=== PATIENT | female | born 1965 | race Hispanic/Latino ===

== ENCOUNTER 2019-07-19 14:41 | Emergency (ER) | payer OTHER ==
[2019-07-19 15:57] LABS: Absolute Lymphocytes (CBC) 2.6 K/uL (0.7-4.9); Basophils % 0.5 % (0-1.3); Hematocrit 35.7 % (36.0-45.0); Lymphocytes % 36.9 % (15.3-44.8); MPV 8.8 fL (7.6-11.3)
[2019-07-19 16:08] LABS: Protime INR 0.98
[2019-07-19 16:18] LABS: ALT/SGPT 33 U/L (12-78); AST/SGOT 16 U/L (15-37); Albumin 3.3 g/dL (3.4-5.0); Alkaline Phosphatase 81 U/L (45-117); BUN Blood Urea Nitrogen 14 mg/dL (7-18); Bicarbonate 29 mmol/L (21-32); Bilirubin Direct < 0.1 mg/dL (0-0.2); Bilirubin Total 0.3 mg/dL (0.2-1.0); Glucose Level 116 mg/dL (74-106); Lipase 128 U/L (73-393); Magnesium 2.4 mg/dL (1.8-2.4); NT PRO-BNP 116 pg/mL (<125); Potassium 3.2 mmol/L (3.5-5.1); Sodium Level 144 mmol/L (136-145); Troponin (Emerg Dept Use Only) < 0.02 ng/mL (0.0-0.045)
--- NOTE | 2019-07-19 16:22 | RAD REPORT ---
EXAM DESCRIPTION: RAD - Chest Single View - 07/19/2019 3:52 pm CLINICAL HISTORY: Chest pain, upper abdominal pain COMPARISON: March 2016 TECHNIQUE: AP portable chest image was obtained 1548 hours . FINDINGS: Lung volumes are low compared to prior study. No focal mass or consolidation. Slight incre ase in interstitial opacification overall could be due to the shallow inspiration. Heart and vasculat ure are normal. No measurable pleural effusion and no pneumothorax. No acute bony abnormality seen. N o acute aortic findings suspected. IMPRESSION: Shallow inspiration portable chest without acute cardiopulmonary finding.
--- NOTE | 2019-07-19 17:19 | RAD REPORT ---
EXAM DESCRIPTION: CT - Abdomen Pelvis W Contrast - 07/19/2019 4:44 pm CLINICAL HISTORY: ABD PAIN COMPARISON: CT study November 2013 TECHNIQUE: Biphasic, helical CT imaging of the abdomen and pelvis was performed following 100 ml non -ionic IV contrast. No oral contrast given. All CT scans are performed using dose optimization technique as appropriate and may include automated exposure control or mA/KV adjustment according to patient size. FINDINGS: No suspicious findings in the lung bases. Fatty infiltration seen in a normal size liver. No focal liver lesion. Spleen and pancreas show no hughes spicious findings. Cholecystectomy clips are present with no biliary tree dilatation. Symmetric renal function is seen with no hydronephrosis or suspicious renal mass. No pyelonephritis o r acute parenchymal process. No bladder abnormalities. No adrenal abnormalities. No dilated bowel loops or bowel wall thickening. No free air, free fluid or inflammatory stranding. No hernia, mass or bulky lymphadenopathy. Uterus and ovaries show no suspicious findings. No suspicious bony findings. L4-5 facet joint degenerative changes are present. IMPRESSION: Contrast enhanced CT abdomen and pelvis showing no acute findings. Fatty infiltration of the liver.
--- NOTE | 2019-07-19 17:31 | ER ---
Nurse's Notes [facility] Name: Sonia Sorenson Age: 53 yrs Sex: Female : 1965 Arrival Date: 07/19/2019 Time: 14:43 Bed 26 Private MD: Bebeto Fournier V Diagnosis: Generalized abdominal pain Presentation: 07/19 14:49 Presenting complaint: Patient states: RUQ pain radiating to back that began 2 days ago. aa5 Pt also states "my ankles are more swollen than usual". Transition of care: patient was not received from another setting of care. Onset of symptoms was July 2019. Risk Assessment: Do you want to hurt yourself or someone else? Patient reports no desire to harm self or others. Initial Sepsis Screen: Does the patient meet any 2 criteria? No. Patient's initial sepsis screen is negative. Does the patient have a suspected source of infection? No. Patient's initial sepsis screen is negative. Care prior to arrival: None. 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 - Social history:: Smoking status: Patient/guardian denies using tobacco. - Ebola Screening: : No symptoms or risks identified at this time. Screenin:17 Abuse screen: Denies threats or abuse. Nutritional screening: No deficits noted. tr5 Tuberculosis screening: No symptoms or risk factors identified. Fall Risk None identified. Assessment: 15:17 General: Appears uncomfortable, Behavior is calm, cooperative, appropriate for age. tr5 Pain: Complains of pain in right upper quadrant Pain does not radiate. Pain currently is 4 out of 10 on a pain scale. Quality of pain is described as sharp, Pain began gradually, Is intermittent. Neuro: Level of Consciousness is awake, alert, obeys commands, Oriented to person, place, time, Second Butler are equal bilaterally Moves all extremities. Cardiovascular: Heart tones present Capillary refill < 3 seconds Pulses are all present. Edema is 3+ to left foot and right foot. Cardiovascular: Reports nausea. Respiratory: Airway is patent Respiratory effort is even, unlabored, Respiratory pattern is regular, symmetrical. GI: Bowel sounds present X 4 quads. Abd is soft Abdomen is tender to palpation in right upper quadrant. : Reports darker color urine. EENT: No signs and/or symptoms were reported regarding the EENT system. Derm: No signs and/or symptoms reported regarding the dermatologic system. Musculoskeletal: Capillary refill < 3 seconds. 16:30 Reassessment: Patient appears in no apparent distress at this time. Patient and/or tr5 family updated on plan of care and expected duration. Pain level reassessed. Patient is alert, oriented x 3, equal unlabored respirations, skin warm/dry/pink. 17:30 Reassessment: Patient appears in no apparent distress at this time. No changes from tr5 previously documented assessment. Patient and/or family updated on plan of care and expected duration. Pain level reassessed. Patient is alert, oriented x 3, equal unlabored respirations, skin warm/dry/pink. Vital Signs: 14:51 BP 161 / 89; Pulse 88; Resp 16 S; Temp 97.6(TE); Pulse Ox 98% on R/A; Weight 83.46 kg aa5 (R); Height 5 ft. 6 in. (167.64 cm) (R); Pain 7/10; 15:52 BP 127 / 73; Pulse 75; Resp 18; Pulse Ox 97% ; lt1 17:17 BP 146 / 86; Pulse 80; Resp 16; Temp 98.8; Pulse Ox 99% ; lt1 14:51 Body Mass Index 29.70 (83.46 kg, 167.64 cm) aa5 ED Course: 14:43 Patient arrived in ED. ag5 14:44 Bebteo Fournier MD is Private Physician. ag5 14:49 Arm band placed on. aa5 14:50 Triage completed. aa5 15:02 Tim Maza, BRET is Primary Nurse. tr5 15:05 Malka Seymour FNP is PHCP. nh 15:05 Irwin Kelly MD is Attending Physician. nh 15:17 Placed in gown. Bed in low position. Call light in reach. Pulse ox on. NIBP on. tr5 15:38 Initial lab(s) drawn, by me, sent to lab. Inserted saline lock: 22 gauge in right lt1 antecubital area, using aseptic technique. 15:48 Radiology exam delayed due to lab results not completed at this time. (BUN/Creatinine). kw1 15:51 EKG done, by ED staff. lt1 15:53 XRAY Chest (1 view) In Process Unspecified. EDMS 16:[address] tr5 16:42 CT completed. Patient tolerated procedure well. Patient moved back from CT. bq 16:45 CT Abd/Pelvis - IV Contrast Only In Process Unspecified. EDMS 17:50 No provider procedures requiring assistance completed. IV discontinued. tr5 Administered Medications: 17:46 Drug: Potassium Chloride 20 mEq Route: PO; tr5 17:49 Follow up: Response: Medication administered at discharge. tr5 Output: 16:28 Urine: 230ml; Total: 230ml. ca1 Outcome: 17:30 Discharge ordered by MD. mo 17:50 Discharged to home ambulatory. tr5 17:50 Condition: stable 17:50 Discharge instructions given to patient, Instructed on discharge instructions, follow up and referral plans. medication usage, Demonstrated understanding of instructions, follow-up care, medications. 17:51 Patient left the ED. tr5 Signatures: Dispatcher [employer] EDMS Malka Seymour, REGISTRAR ASSISTANT REGISTRAR ASSISTANT mo Luisana Day Audri, RN RN aa5 Jazzmine Lea kw1 Laury Rosas RN RN ca1 Alex Adan Latonya Fairbanks lt1 Tim Maza RN RN tr5
--- NOTE | 2019-07-19 17:31 | EDPHYS ---
Physician Documentation [facility] Name: Sonia Sorenson Age: 53 yrs Sex: Female : 1965 Arrival Date: 07/19/2019 Time: 14:43 Bed 26 Private MD: Bebeto Fournier V ED Physician Irwin Kelly HPI: 07/19 17:25 This 53 yrs old Female presents to ER via Ambulatory with complaints of nh Abdominal Pain, Ankle Swelling, Feet Swelling. 17:25 The patient presents with abdominal pain in the right upper quadrant, right lower nh quadrant. Onset: The symptoms/episode began/occurred 3 day(s) ago. The symptoms do not radiate. Associated signs and symptoms: none. The symptoms are described as constant. Modifying factors: The symptoms are alleviated by nothing, the symptoms are aggravated by nothing. Severity of pain: At its worst the pain was moderate just prior to arrival, in the emergency department the pain has improved. The patient has not experienced similar symptoms in the past. Seen by GI and had colonoscopy last week.. 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 - Social history:: Smoking status: Patient/guardian denies using tobacco. - Ebola Screening: : No symptoms or risks identified at this time. ROS: 17:25 Constitutional: Negative for fever, chills, and weight loss, Eyes: Negative for injury, nh pain, redness, and discharge, ENT: Negative for injury, pain, and discharge, Neck: Negative for injury, pain, and swelling, Cardiovascular: Negative for chest pain, palpitations, and edema, Respiratory: Negative for shortness of breath, cough, wheezing, and pleuritic chest pain, Back: Negative for injury and pain, : Negative for injury, bleeding, discharge, and swelling, Skin: Negative for injury, rash, and discoloration, Neuro: Negative for headache, weakness, numbness, tingling, and seizure, Psych: Negative for depression, anxiety, suicide ideation, homicidal ideation, and hallucinations, Allergy/Immunology: Negative for hives, rash, and allergies, Endocrine: Negative for neck swelling, polydipsia, polyuria, polyphagia, and marked weight changes, Hematologic/Lymphatic: Negative for swollen nodes, abnormal bleeding, and unusual bruising. 17:25 Abdomen/GI: Positive for abdominal pain, Negative for nausea, vomiting, and diarrhea. 17:25 MS/extremity: Positive for swelling, warmth, of the right foot and left foot, Negative for pain, tenderness, tingling. Exam: 17:25 Constitutional: This is a well developed, well nourished patient who is awake, alert, nh and in no acute distress. Head/Face: Normocephalic, atraumatic. Eyes: Pupils equal round and reactive to light, extra-ocular motions intact. Lids and lashes normal. Conjunctiva and sclera are non-icteric and not injected. Cornea within normal limits. Periorbital areas with no swelling, redness, or edema. ENT: Nares patent. No nasal discharge, no septal abnormalities noted. Tympanic membranes are normal and external auditory canals are clear. Oropharynx with no redness, swelling, or masses, exudates, or evidence of obstruction, uvula midline. Mucous membranes moist. Neck: Trachea midline, no thyromegaly or masses palpated, and no cervical lymphadenopathy. Supple, full range of motion without nuchal rigidity, or vertebral point tenderness. No Meningismus. Chest/axilla: Normal chest wall appearance and motion. Nontender with no deformity. No lesions are appreciated. Cardiovascular: Regular rate and rhythm with a normal S1 and S2. No gallops, murmurs, or rubs. Normal PMI, no JVD. No pulse deficits. Respiratory: Lungs have equal breath sounds bilaterally, clear to auscultation and percussion. No rales, rhonchi or wheezes noted. No increased work of breathing, no retractions or nasal flaring. Back: No spinal tenderness. No costovertebral tenderness. Full range of motion. Skin: Warm, dry with normal turgor. Normal color with no rashes, no lesions, and no evidence of cellulitis. MS/ Extremity: Pulses equal, no cyanosis. Neurovascular intact. Full, normal range of motion. Neuro: Awake and alert, GCS 15, oriented to person, place, time, and situation. Cranial nerves II-XII grossly intact. Motor strength 5/5 in all extremities. Sensory grossly intact. Cerebellar exam normal. Normal gait. Psych: Awake, alert, with orientation to person, place and time. Behavior, mood, and affect are within normal limits. 17:25 Abdomen/GI: Inspection: abdomen appears normal, Bowel sounds: normal, Palpation: abdomen is soft and non-tender. Vital Signs: 14:51 BP 161 / 89; Pulse 88; Resp 16 S; Temp 97.6(TE); Pulse Ox 98% on R/A; Weight 83.46 kg aa5 (R); Height 5 ft. 6 in. (167.64 cm) (R); Pain 7/10; 15:52 BP 127 / 73; Pulse 75; Resp 18; Pulse Ox 97% ; lt1 17:17 BP 146 / 86; Pulse 80; Resp 16; Temp 98.8; Pulse Ox 99% ; lt1 14:51 Body Mass Index 29.70 (83.46 kg, 167.64 cm) aa5 MDM: 15:05 Patient medically screened. sd 17:25 Data reviewed: vital signs, nurses notes, lab test result(s), radiologic studies, I nh have discussed the patient's presentation/case with the attending Emergency Department Physician; and as a result, I will discharge patient. Counseling: I had a detailed discussion with the patient and/or guardian regarding: the historical points, exam findings, and any diagnostic results supporting the discharge/admit diagnosis, lab results, radiology results, the need for outpatient follow up, to return to the emergency department if symptoms worsen or persist or if there are any questions or concerns that arise at home. 07/19 15:23 Order name: Basic Metabolic Panel; Complete Time: 16:38 sd 07/19 15:23 Order name: CBC with Diff; Complete Time: 16:38 sd 07/19 15:23 Order name: Creatinine for Radiology; Complete Time: 16:38 sd 07/19 15:23 Order name: Hepatic Function; Complete Time: 16:38 sd 07/19 15:23 Order name: Lipase; Complete Time: 16:38 sd 07/19 15:23 Order name: Magnesium; Complete Time: 16:38 sd 07/19 15:23 Order name: IV Saline Lock; Complete Time: 15:38 sd 07/19 15:23 Order name: NT PRO-BNP; Complete Time: 16:38 sd 07/19 15:23 Order name: PT-INR; Complete Time: 16:38 sd 07/19 15:23 Order name: Troponin (emerg Dept Use Only); Complete Time: 16:38 sd 07/19 15:23 Order name: XRAY Chest (1 view); Complete Time: 16:38 sd 07/19 15:23 Order name: EKG; Complete Time: 15:25 sd 07/19 15:23 Order name: CT Abd/Pelvis - IV Contrast Only; Complete Time: 17:23 sd 07/19 15:23 Order name: Labs collected and sent; Complete Time: 15:38 sd 07/19 15:23 Order name: Cardiac monitoring; Complete Time: 15:52 sd 07/19 15:23 Order name: EKG - Nurse/Tech; Complete Time: 15:52 sd 07/19 15:23 Order name: O2 Per Protocol; Complete Time: 15:38 sd 07/19 15:23 Order name: O2 Sat Monitoring; Complete Time: 15:38 sd Administered Medications: 17:46 Drug: Potassium Chloride 20 mEq Route: PO; tr5 17:49 Follow up: Response: Medication administered at discharge. tr5 Disposition: 17:59 Co-signature as Attending Physician, Irwin Kelly MD. rn Disposition: 07/19/19 17:30 Discharged to Home. Impression: Generalized abdominal pain. - Condition is Stable. - Discharge Instructions: Abdominal Pain, Adult. - Prescriptions for Bentyl 20 mg Oral Tablet - take 1 tablet by ORAL route every 6 hours As needed; 20 tablet. - Medication Reconciliation Form, Thank You Letter, Antibiotic Education, Prescription Opioid Use form. - Follow up: Private Physician; When: 2 - 3 days; Reason: Recheck today's complaints. - Problem is new. - Symptoms are unchanged. Signatures: Dispatcher [employer] EDMS Malka Seymour, BATTERBOARD SETTER BATTERBOARD SETTER sd Irwin Kelly MD MD rn Calderon, Audri, RN RN [email or web address] Tim Maza RN RN tr5 Corrections: (The following items were deleted from the chart) 17:51 17:30 07/19/2019 17:30 Discharged to Home. Impression: Generalized abdominal pain. tr5 Condition is Stable. Forms are Medication Reconciliation Form, Thank You Letter, Antibiotic Education, Prescription Opioid Use. Follow up: Private Physician; When: 2 - 3 days; Reason: Recheck today's complaints. Problem is new. Symptoms are unchanged. nh
[2019-07-19] MEDS ORDERED: POTASSIUM CL SA 10 MEQ TAB PO ONE (17:36)
[2019-07-19 20:34] VITALS: BP 146/86; TEMP 98.8; O2SAT 99
--- NOTE | 2019-07-20 09:33 | EKG ---
Test Date: 2019-07-19 Test Time: 15:45:40 Card Seller: CATIE MEASUREMENT RESULTS: Intervals: Rate: 77 DE: 160 QRSD: 90 QT: 410 QTc: 463 [place]: P: 63 DE: 160 QRS: 56 T: 93 INTERPRETIVE STATEMENTS: Normal sinus rhythm Possible Anterior infarct, age undetermined Abnormal ECG Compared to ECG 02/05/2017 02:35:27 Myocardial infarct finding now present Sinus arrhythmia no longer present Electronically Signed On 07-20-19 09:32:23 CDT by Amado Manzano
== END 2019-07-19 17:51 | disposition home or self-care (01) ==
LOC: ER 14:41
DX: R10.84 Generalized abdominal pain (principal); I10 Essential (primary) hypertension; Z88.8 Allergy status to other drugs, medicaments and biological substances; Z91.048 Other nonmedicinal substance allergy status
CPT/HCPCS: 93005; 85025; 80048; 36415; 83735; 85610; 80076; 84484; 83690; 83880; 74177; 71045; 99284; Q9967

== ENCOUNTER 2022-11-06 22:11 | Emergency (ER) | payer OTHER, SELFPAY ==
[2022-11-06 23:22] LABS: Hematocrit 36.1 % (36.0-45.0); Lymphocytes % 42.7 % (15.3-44.8); MCV 85.9 fL (80-100); MPV 7.9 fL (7.6-11.3); RBC Red Blood Cell Count 4.21 M/uL (3.86-4.86)
[2022-11-06 23:26] LABS: Protime INR 0.95
[2022-11-06 23:47] LABS: Potassium 3.6 mmol/L (3.5-5.1); Troponin High Sensitivity 4.7 pg/mL (<58.9)
--- NOTE | 2022-11-07 01:07 | ER ---
Nurse's Notes [facility] Name: Sonia Sorenson Age: 57 yrs Sex: Female : 1965 Arrival Date: 11/06/2022 Time: 22:16 Bed 27 Private MD: Diagnosis: Paresthesia of skin Presentation: 11/06 22:23 Chief complaint: Patient states: "I am having tingling and numbness to the left side of as6 my face and down my left arm. I called my doctor and they said to take a baby aspirin". Coronavirus screen: At this time, the client does not indicate any symptoms associated with coronavirus-19. Ebola Screen: No symptoms or risks identified at this time. Initial Sepsis Screen: Does the patient meet any 2 criteria? No. Patient's initial sepsis screen is negative. Does the patient have a suspected source of infection? No. Patient's initial sepsis screen is negative. Risk Assessment: Do you want to hurt yourself or someone else? Patient reports no desire to harm self or others. Onset of symptoms was November 06, 2022 at 16:50. 22:23 Method Of Arrival: Ambulatory as6 22:23 Acuity: CELESTINA 3 as6 Historical: - Home Meds: 22:27 Spironolactone Oral [Active]; atorvastatin oral [Active]; as6 - PMHx: 22:27 Hypertension; as6 - PSHx: 22:27 Cholecystectomy; section; as6 - Immunization history:: Client reports receiving the 2nd dose of the Covid vaccine, pfizer Flu vaccine is up to date. - Social history:: Smoking status: Patient denies any tobacco usage or history of. - Family history:: not pertinent. - Hospitalizations: : No recent hospitalization is reported. Screenin:40 Patient has been NPO before screening. The patient is alert, able to follow commands. ll3 The patient does not exhibit slurred or garbled speech The patient is not exhibiting difficulty speaking. The patient does not exhibit difficulty understanding words. The patient is able to swallow own secretions with no drooling or need for suction. Patient tolerated one teaspoon of water. No drooling, immediate coughing, gurgling, or clearing of the throat was noted. The patient tolerated 90mL of water. No drooling, immediate coughing, gurgling, or clearing of the throat was noted. The patient passed the bedside swallow screening. Oral medications may be given as ordered. Contact Physician for further diet orders. Provider notified of bedside swallow screening results: Irwin Kelly MD. 11/07 01:05 [facility] ED Fall Risk Assessment (Adult) History of falling in the last 3 months, ll3 including since admission No falls in past 3 months (0 pts) Confusion or Disorientation No (0 pts) Intoxicated or Sedated No (0 pts) Impaired Gait No (0 pts) Mobility Assist Device Used No (0 pt) Altered Elimination No (0 pt). Abuse screen: Denies threats or abuse. Denies injuries from another. Nutritional screening: No deficits noted. Tuberculosis screening: No symptoms or risk factors identified. Assessment: 11/06 22:33 General: Appears uncomfortable, Behavior is calm, cooperative. Pain: Complains of pain ll3 in left axilla Pain does not radiate. Neuro: Level of Consciousness is awake, alert, obeys commands, Oriented to person, place, time, situation, Reports numbness in left ear, left cheek, left eye, left mandaen and left jaw. Respiratory: Respiratory effort is even, unlabored, Respiratory pattern is regular, symmetrical. Derm: Skin is pink, warm \\T\\ dry. Vital Signs: 22:23 BP 148 / 94; Pulse 79; Resp 18; Temp 98.6(O); Pulse Ox 97% on R/A; Weight 87.54 kg (R); as6 Height 5 ft. 6 in. (167.64 cm) (R); Pain 0/10; 11/07 00:00 BP 155 / 97; Pulse 81; Resp 17; Pulse Ox 99% on R/A; ll3 01:19 BP 156 / 90; Pulse 75; Resp 18; Pulse Ox 99% on R/A; ll3 11/06 22:23 Body Mass Index 31.15 (87.54 kg, 167.64 cm) as6 ED Course: 11/06 22:16 Patient arrived in ED. jj6 22:18 Irwin Kelly MD is Attending Physician. rn 22:27 Triage completed. as6 22:29 Arm band placed on. as6 23:00 Patient has correct armband on for positive identification. Placed in gown. Bed in low ll3 position. Call light in reach. Side rails up X 1. 23:03 Inserted saline lock: 20 gauge in right antecubital area, using aseptic technique. zm Blood collected. 23:03 Basic Metabolic Panel Sent. zm 23:04 CBC with Diff Sent. zm 23:04 High Sensitivity Troponin Sent. zm 23:04 Protime (+inr) Sent. zm 23:04 Ptt, Activated Sent. zm 23:24 CT Head Brain wo Cont In Process Unspecified. EDMS 23:31 CT Head Angio In Process Unspecified. EDMS 23:[address] In Process Unspecified. EDMS 11/07 01:05 No provider procedures requiring assistance completed. ll3 01:07 Michael Stovall MD is Referral Physician. rn 01:18 IV discontinued, intact, bleeding controlled, No redness/swelling at site. Pressure ll3 dressing applied. Administered Medications: No medications were administered Medication: 01:05 VIS not applicable for this client. ll3 Outcome: 01:07 Discharge ordered by . rn 01:18 Discharged to home ambulatory, with significant other. ll3 01:18 Condition: stable 01:18 Discharge instructions given to patient, significant other, Instructed on discharge instructions, follow up and referral plans. medication usage, Demonstrated understanding of instructions, follow-up care, medications, Prescriptions given X 2. 01:19 Patient left the ED. ll3 Signatures: Dispatcher [employer] EDMD Irwin Kelly MD MD rn Jeffries, Jennifer jj6 Slawson, Ashby, RN RN as6 Jonh See RN RN ll3 Hodan Rahman
--- NOTE | 2022-11-07 01:08 | EDPHYS ---
Physician Documentation [facility] Name: Sonia Sorenson Age: 57 yrs Sex: Female : 1965 Arrival Date: 11/06/2022 Time: 22:16 Bed 27 Private MD: ED Physician Irwin Kelly HPI: 11/06 23:24 This 57 yrs old Female presents to ER via Ambulatory with complaints of rn tingling left face/arm, left arm pain. 23:25 The patient's problem is reported as paresthesias, in left side of face, left hand. rn Onset: The symptoms/episode began/occurred at 16:50. Duration: The episode is continuous. Context: symptoms became apparent at 16:50. The symptoms are alleviated by nothing. The symptoms are aggravated by nothing. Associated signs and symptoms: Pertinent positives: left arm pain. Severity of symptoms: At their worst the symptoms were mild in the emergency department the symptoms are unchanged. The patient has not experienced similar symptoms in the past. The patient has been recently seen by a physician:. Pt reports 4 days of left arm pain, and aching. No trauma. Today around 1650 noticed left face tingling and "feels cold". Also reports left hand feels "tingling". No weakness. Reports left upper arm in tricep region aching, as well as left neck. No fever. No chest pain. Seen by pcp for left arm pain and told likely muscular. Tingling new so came in for eval. . Historical: - Home Meds: 22:27 Spironolactone Oral [Active]; atorvastatin oral [Active]; as6 - PMHx: 22:27 Hypertension; as6 - PSHx: 22:27 Cholecystectomy; section; as6 - Immunization history:: Client reports receiving the 2nd dose of the Covid vaccine, pfizer Flu vaccine is up to date. - Social history:: Smoking status: Patient denies any tobacco usage or history of. - Family history:: not pertinent. - Hospitalizations: : No recent hospitalization is reported. ROS: 23:25 Constitutional: Negative for fever, chills, and weight loss, Eyes: Negative for injury, rn pain, redness, and discharge, Neck: Negative for injury, and swelling, Cardiovascular: Negative for chest pain, palpitations, and edema, Respiratory: Negative for shortness of breath, cough, wheezing, and pleuritic chest pain, Abdomen/GI: Negative for abdominal pain, nausea, vomiting, diarrhea, and constipation, Back: Negative for injury and pain, MS/Extremity: Negative for injury and deformity, Skin: Negative for injury, rash, and discoloration, Neuro: Negative for headache, weakness, and seizure. Exam: 23:25 Constitutional: This is a well developed, well nourished patient who is awake, alert, rn and in no acute distress. Head/Face: Normocephalic, atraumatic. Eyes: Lids and lashes normal. Conjunctiva and sclera are non-icteric and not injected. Cornea within normal limits. Periorbital areas with no swelling, redness, or edema. Neck: Trachea midline, no midline cervical tenderness Cardiovascular: Regular rate and rhythm . No pulse deficits. Respiratory: No increased work of breathing, no retractions or nasal flaring. Skin: Warm, dry with normal turgor. Normal color with no rashes, no lesions, and no evidence of cellulitis. MS/ Extremity: Pulses equal, no cyanosis. Neurovascular intact. Full, normal range of motion. Equal circumference. Neuro: Awake and alert, GCS 15, oriented to person, place, time, and situation. Cranial nerves II-XII grossly intact. Motor strength 5/5 in all extremities. Decreased sensation to soft touch left face and left hand, otherwise normal and equal sensation. Normal gait. 11/07 00:00 ECG was reviewed by the Attending Physician. rn Vital Signs: 11/06 22:23 BP 148 / 94; Pulse 79; Resp 18; Temp 98.6(O); Pulse Ox 97% on R/A; Weight 87.54 kg (R); as6 Height 5 ft. 6 in. (167.64 cm) (R); Pain 0/10; 11/07 00:00 BP 155 / 97; Pulse 81; Resp 17; Pulse Ox 99% on R/A; ll3 01:19 BP 156 / 90; Pulse 75; Resp 18; Pulse Ox 99% on R/A; ll3 11/06 22:23 Body Mass Index 31.15 (87.54 kg, 167.64 cm) as6 MDM: 11/06 22:18 Patient medically screened. rn 11/07 01:04 Differential diagnosis: CVA, TIA, metabolic disorder, radiculopathy, paresthesias, rn complicated migraine. Data reviewed: vital signs, nurses notes, lab test result(s), EKG, radiologic studies, CT scan, and as a result, I will discharge patient. Counseling: I had a detailed discussion with the patient and/or guardian regarding: the historical points, exam findings, and any diagnostic results supporting the discharge/admit diagnosis, lab results, radiology results, the need for outpatient follow up, to return to the emergency department if symptoms worsen or persist or if there are any questions or concerns that arise at home. Medical screen evaluation completed. [facility]. Response to treatment: the patient's symptoms have markedly improved after treatment, and as a result, I will discharge patient. ED course: CT head neg, CTA head and neck negative for occlusion. 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 Offered admission for MRI in AM to completely rule out CVA, patient declines, is happy with workup performed and feels much better. She started baby aspirin today, told her she can continue as long as no bleeding noted. Will f/u either way with Neurology. . 11/06 22:30 Order name: Basic Metabolic Panel; Complete Time: 23:54 11/06 22:30 Order name: CBC with Diff; Complete Time: 23:54 11/06 22:30 Order name: High Sensitivity Troponin; Complete Time: 23:54 11/06 22:30 Order name: Protime (+inr); Complete Time: 23:54 11/06 22:30 Order name: Ptt, Activated; Complete Time: 23:54 11/06 23:42 Order name: Glucose, Ancillary Testing; Complete Time: 23:54 EDMS 11/06 22:30 Order name: CT Head Brain wo Cont rn 11/06 22:30 Order name: EKG; Complete Time: 22:31 rn 11/06 22:30 Order name: Accucheck; Complete Time: 23:32 rn 11/06 22:30 Order name: Cardiac monitoring; Complete Time: 23:45 11/06 22:30 Order name: EKG - Nurse/Tech; Complete Time: 23:45 11/06 22:30 Order name: IV Saline Lock; Complete Time: 23:03 11/06 22:30 Order name: CT Head Angio rn 11/06 22:30 Order name: Neck Angio CT rn 11/06 22:30 Order name: Labs collected and sent; Complete Time: 23: rn 11/06 Order name: NPO; Complete Time: 23: rn 11/0630 Order name: O2 Per Protocol; Complete Time: 23:19 rn 11/06 22:30 Order name: O2 Sat Monitoring; Complete Time: 23: rn 11/06 22:30 Order name: Stroke Swallow Screen; Complete Time: 23:39 rn EC:00 Rate is 73 beats/min. Rhythm is regular. QRS [place] is Normal. [place] interval is normal. QRS rn interval is normal. QT interval is normal. No Q waves. T waves are Normal. No ST changes noted. Clinical impression: NSR w/ Non-specific ST/T Changes. Interpreted by me. Reviewed by me. Administered Medications: No medications were administered Disposition Summary: 11/07/22 01:07 Discharge Ordered Location: Home rn Problem: new rn Symptoms: have improved rn Condition: Stable rn Diagnosis - Paresthesia of skin rn Followup: rn - With: Michael Stovall MD - When: As needed - Reason: Recheck today's complaints, Re-evaluation by your physician Discharge Instructions: - Discharge Summary Sheet rn - Paresthesia rn Forms: - Medication Reconciliation Form rn - Thank You Letter rn - Antibiotic garment patternmaker - Prescription Opioid Use rn Prescriptions: - Cyclobenzaprine 10 mg Oral Tablet - take 1 tablet by ORAL route every 8-12 hours As needed; 12 tablet; Refills: 0, rn Product Selection Permitted - Medrol (Ariel) 4 mg Oral Tablets, Dose Pack - take 1 tablet by ORAL route as directed - follow package instructions; 1 rn packet; Refills: 0, Product Selection Permitted Signatures: Dispatcher [employer] Irwin Barreto MD MD rn Slawson, Ashby RN RN as6
[2022-11-07 01:55] VITALS: TEMP 98.6
[2022-11-07 02:00] VITALS: O2SAT 99
[2022-11-07 02:06] VITALS: BP 156/90
--- NOTE | 2022-11-07 11:44 | RAD REPORT ---
EXAM DESCRIPTION: CT Head Without Intravenous Contrast CLINICAL HISTORY: The patient is 57 years old and is Female; left sided numbness/tingling TECHNIQUE: Axial computed tomography images of the head/brain without intravenous contrast. Sagitt al and coronal reformatted images were created and reviewed. This CT exam was performed using one o r more of the following dose reduction techniques: automated exposure control, adjustment of the mA and/or kV according to patient size, and/or use of iterative reconstruction technique. COMPARISON: No relevant prior studies available. FINDINGS: Brain: Unremarkable. No hemorrhage. No significant white matter disease. No edema. Ventricles: Unremarkable. No ventriculomegaly. Bones/joints: Unremarkable. No acute fracture. Soft tissues: Unremarkable. Sinuses: Unremarkable as visualized. Mastoid air cells: Unremarkable as visualized. No mastoid effusion. IMPRESSION: No acute intracranial abnormality. Electronically signed by: Delano Mustafa MD 11/06/2022 11:38 PM INSULATION BLOWER Due to temporary technical issues with the PACS/Fluency reporting system, reports are being signed by the in house radiologists without review as a courtesy to insure prompt reporting. The interpreting radiologist is fully responsible for the content of the report.
--- NOTE | 2022-11-07 11:58 | RAD REPORT ---
EXAM DESCRIPTION: Head angio (accession [id number]), Neck Angio (accession [id number]) CLINICAL HISTORY: 57-year-old female with left-sided tingling. COMPARISON: CT brain 11/06/2022. TECHNIQUE: CT angiography of the head and neck following dynamic bolus of intravenous contrast. 3D r eformatted reconstructions were performed on an independent workstation. This exam was performed acco rding to our departmental dose optimization program which includes use of automated exposure control, adjustment of the mA and/or kV according to patient size and/or use of iterative reconstruction tech nique. FINDINGS: CTA neck: Small focus of linear hypoattenuation is identified within a bend the level of the mid right internal carotid artery measuring 1 mm, (404, image 75) raising the possibility of a vascular web. Patent flow opacification of the aortic arch origin right brachiocephalic, left common carotid, and l eft subclavian arteries. The bilateral vertebral artery origins are normal. Patent flow opacification through the bilateral common carotid arteries, carotid bifurcations, cervic al internal/external carotid, and vertebral arteries. CTA brain: Patent flow opacification through anterior circulation (bilateral petrous/cavernous/supraclinoid inte rnal carotid arteries, anterior and middle cerebral arteries), posterior circulation (vertebral-basil ar, posterior-inferior cerebellar, anterior-inferior cerebellar, superior cerebellar, and posterior c erebral arteries), and distal intracranial vasculature. Patent flow opacification through a complete [id number] with a patent anterior communicating ar paulino and bilateral posterior communicating arteries. Normal superficial and deep intracranial venous drainage. No evidence of occlusive thrombus, dissection, or vascular malformation. IMPRESSION: 1. Patent flow related enhancement of the intracranial circulation. 2. Patent flow related enhancement of the cervical vasculature without significant stenosis by NASC ET criteria. 3. Small focus of linear hypoattenuation is identified within a bend the level of the mid right int ernal carotid artery measuring 1 mm, raising the possibility of a vascular web. Electronically signed by: Jannette Parikh MD 11/07/2022 12:09 AM PATIENT SUPPORT REPRESENTATIVE Due to temporary technical issues with the PACS/Fluency reporting system, reports are being signed by the in house radiologists without review as a courtesy to insure prompt reporting. The interpreting radiologist is fully responsible for the content of the report.
--- NOTE | 2022-11-07 12:10 | RAD REPORT ---
EXAM DESCRIPTION: Head angio (accession [id number]), Neck Angio (accession [id number]) CLINICAL HISTORY: 57-year-old female with left-sided tingling. COMPARISON: CT brain 11/06/2022. TECHNIQUE: CT angiography of the head and neck following dynamic bolus of intravenous contrast. 3D r eformatted reconstructions were performed on an independent workstation. This exam was performed acco rding to our departmental dose optimization program which includes use of automated exposure control, adjustment of the mA and/or kV according to patient size and/or use of iterative reconstruction tech nique. FINDINGS: CTA neck: Small focus of linear hypoattenuation is identified within a bend the level of the mid right internal carotid artery measuring 1 mm, (404, image 75) raising the possibility of a vascular web. Patent flow opacification of the aortic arch origin right brachiocephalic, left common carotid, and l eft subclavian arteries. The bilateral vertebral artery origins are normal. Patent flow opacification through the bilateral common carotid arteries, carotid bifurcations, cervic al internal/external carotid, and vertebral arteries. CTA brain: Patent flow opacification through anterior circulation (bilateral petrous/cavernous/supraclinoid inte rnal carotid arteries, anterior and middle cerebral arteries), posterior circulation (vertebral-basil ar, posterior-inferior cerebellar, anterior-inferior cerebellar, superior cerebellar, and posterior c erebral arteries), and distal intracranial vasculature. Patent flow opacification through a complete [id number] with a patent anterior communicating ar paulino and bilateral posterior communicating arteries. Normal superficial and deep intracranial venous drainage. No evidence of occlusive thrombus, dissection, or vascular malformation. IMPRESSION: 1. Patent flow related enhancement of the intracranial circulation. 2. Patent flow related enhancement of the cervical vasculature without significant stenosis by NASC ET criteria. 3. Small focus of linear hypoattenuation is identified within a bend the level of the mid right int ernal carotid artery measuring 1 mm, raising the possibility of a vascular web. Electronically signed by: Jannette Parikh MD 11/07/2022 12:09 AM FOOD CHECKER Due to temporary technical issues with the PACS/Fluency reporting system, reports are being signed by the in house radiologists without review as a courtesy to insure prompt reporting. The interpreting radiologist is fully responsible for the content of the report.
--- NOTE | 2022-11-07 13:38 | EKG ---
Test Date: 2022-11-06 Test Time: 23:39:50 Donkey Engine Firer/Fireman: CURTIS MEASUREMENT RESULTS: Intervals: Rate: 73 MI: 174 QRSD: 90 QT: 412 QTc: 453 [place]: P: 64 MI: 174 QRS: -14 T: 69 INTERPRETIVE STATEMENTS: Normal sinus rhythm Anterior infarct, age undetermined Abnormal ECG Compared to ECG 07/19/2019 15:45:40 No significant changes Electronically Signed On 11-07-22 13:37:02 LEGAL SECRETARY RECEPTIONIST by Rodo Sweeney
== END 2022-11-07 01:19 | disposition home or self-care (01) ==
LOC: ER 22:11
DX: R20.2 Paresthesia of skin (principal); R20.0 Anesthesia of skin; I10 Essential (primary) hypertension
CPT/HCPCS: 36415; 70450; 70496; 70498; 80048; 82565; 82947; 84484; 85025; 85610; 85730; 93005; 99284

== ENCOUNTER 2025-03-17 18:42 | Emergency (ER) | payer OTHER ==
--- OUTSIDE RECORDS SUMMARY | 2025-03-17 18:45 | XMS REPORT | Continuity of Care Document ---
Author Name Unknown Address [address] [place] [address] [address] [place] [address] [facility] Address [address] [place] [address]. [address] [place] [address] Care Team Providers Care Help Desk Assistant Name Role Phone Vu Aamir CASTILLO Primary Care Physician [phone] GC_GCBZW_Kadiyala_S Attending Clinician Unavaila ble GC_GCBZW_Kadiyala_S Admitting Clinician Unavaila ble Medications Ordered Medication Name Filled Medication Name Start Date Stop Date Current Medication? Ordering Clinician Indication Dosage Frequency Signature (SIG) Comments Components Source diclofenac 1 % topical gel 2023-11 00:00: 00 Yes 1% Crispin Schmidt TAKE 1 TABLET DAILY. 07-07 00:00: 00 Yes 75 Crispin Schmidt TAKE 1 TABLET BY MOUTH ONCE DAILY 07-07 00:00: 00 Yes 40 Crispin Schmidt TAKE 1/2 TABLET DAILY. 07-07 00:00: 00 Yes 25 Crispin Schmidt TAKE 1 TABLET BY MOUTH ONCE DAILY 07-07 00:00: 00 Yes 50 Crispin Schmidt TAKE 1 TABLET BY MOUTH ONCE DAILY 07-07 00:00: 00 Yes 112 Crispin Schmidt TAKE 10 ML EVERY 4-6 HOURS NEEDED 07-07 00:00: 00 11-23 00:00 :00 No [id number] Crispin Schmidt 1 CAP EVERY 8 HOURS NEEDED FOR COUGH 07-07 00:00: 00 11-23 00:00 :00 No 200 Crispin Schmidt TAKE 2 CAPSULES BY MOUTH TWICE DAILY WITH FOOD 05-02 00:00: 00 Yes Crispin Schmidt TAKE 1 TABLET BY MOUTH THREE TIMES DAILY AFTER A MEAL 05-02 00:00: 00 Yes Crisipn Schmidt TAKE 1 TABLET BY MOUTH EVERY 12 HOURS WITH FOOD 05-02 00:00: 00 Yes Crispin Schmidt TAKE 1 CAPSULE BY MOUTH TWICE DAILY 05-02 00:00: 00 Yes Crispin Schmidt TAKE 1 TABLET BY MOUTH TWICE DAILY 05-01 00:00: 00 Yes Crispin Schmidt DISSOLVE 1 TABLET UNDER THE TONGUE EVERY 8 HOURS NEEDED FOR NAUSEA AND VOMITING 05-01 00:00: 00 Yes Crispin Schmidt TAKE 1 TABLET BY MOUTH EVERY 8 TO 12 HOURS NEEDED FOR MUSCLE SPASM 2021-11 00:00: 00 Yes Crispin Schmidt TAKE BY MOUTH DIRECTED ON INSIDE OF PACKAGE 2021-11 00:00: 00 Yes Crispin Schmidt TAKE 1 TABLET BY MOUTH EVERY 8 HOURS WITH MEALS 2021-11 00:00: 00 Yes Crispin Schmidt Dose Unknown 04-21 00:00: 00 Yes Crispin Schmidt albuterol sulfate HFA 90 mcg/actuati on aerosol inhaler 12-13 00:00: 00 Yes 12mcg/a ctuatio n Crispin Schmidt Bromfed DM 2 mg-30 mg-10 mg/5 mL oral syrup 12-13 00:00: 00 Yes 5mg/5 mL Crispin Schmidt atorvastati n 40 mg tablet 06-13 00:00: 00 Yes 1mg Crispin Schmidt Vitamin D3 10 mcg (400 unit) capsule 06-13 00:00: 00 Yes 2mg/1.1 4 mL Crispin Schmidt clonidine HCl 0.1 mg tablet 06-10 00:00: 00 Yes 1mg Crispin Schmidt losartan 100 mg-hydrochl orothiazide 25 mg tablet 06-10 00:00: 00 Yes 1mg Crispin Schmidt amlodipine 10 mg tablet 06-10 00:00: 00 Yes 1mg Crispin Schmidt paroxetine 10 mg tablet 06-10 00:00: 00 Yes 1mg Crispin Schmidt Immunizations Ordered Immunization Name Filled Immunization Name Date Status Comments Source SHINGRIX VACCINE SHINGRIX VACCINE 2022-04-21 00:00:00 Completed Crispin Schmidt Influenza, seasonal, inj Influenza, seasonal, inj 2021-10-01 00:00:00 Completed Crispin Schmidt Tdap Tdap 2021-06-10 00:00:00 Completed Crispin Schmidt SHINGRIX VACCINE SHINGRIX VACCINE 2021-06-10 00:00:00 Completed Crispin Schmidt Vital Signs Vital Name Observation Time Observation Value Comments S ource BP Systolic 2024-10-17 13:28:00 130 mm[Hg] Step hen F Brayan BP Diastolic 2024-10-17 13:28:00 79 mm[Hg] Kp phen F Brayan Weight Measured 2024-10-17 13:28:00 201.20 pounds Crispin Schmidt Height Measured 2024-10-17 13:28:00 65.87 inches Crispin Schmidt Body Temperature 2024-10-17 13:28:00 98.40 degrees Crispin Schmidt Heart Rate 2024-10-17 13:28:00 86.00 /min Cherri en F Brayan Respiratory Rate 2024-10-17 13:28:00 Crispin Schmidt BP Diastolic 2024-10-17 11:25:00 79 mm[Hg] Kp phen F Brayan Weight Measured 2024-10-17 11:25:00 201.20 pounds Crispin Schmidt Height Measured 2024-10-17 11:25:00 65.87 inches Crispin Schmidt Body Temperature 2024-10-17 11:25:00 98.40 degrees Crispin Schmidt Heart Rate 2024-10-17 11:25:00 86.00 /min Cherri en F Brayan Respiratory Rate 2024-10-17 11:25:00 Crispin Michelle Schmidt BP Systolic 2024-10-17 11:25:00 130 mm[Hg] Step hen F Brayan BP Systolic 2024-09-26 10:40:00 134 mm[Hg] Step hen F Brayan BP Diastolic 2024-09-26 10:40:00 84 mm[Hg] Kp phen F Brayan Weight Measured 2024-09-26 10:40:00 198.80 pounds Crispin Schmidt Height Measured 2024-09-26 10:40:00 65.87 inches Crispin Schmidt Body Temperature 2024-09-26 10:40:00 98.40 degrees Crsipin F Brayan Heart Rate 2024-09-26 10:40:00 85.00 /min Cherri en F Brayan Respiratory Rate 2024-09-26 10:40:00 17.00 /min Crispin F Brayan BP Systolic 2024-09-17 16:38:00 136 mm[Hg] Step hen F Brayan BP Diastolic 2024-09-17 16:38:00 84 mm[Hg] Kp phen F Brayan Weight Measured 2024-09-17 16:38:00 199.20 pounds Crispin F Brayan Height Measured 2024-09-17 16:38:00 65.87 inches Crispin F Brayan Body Temperature 2024-09-17 16:38:00 98.20 degrees Crispin F Brayan Heart Rate 2024-09-17 16:38:00 94.00 /min Cherri en F Brayan Respiratory Rate 2024-09-17 16:38:00 18.00 /min Crispin F Brayan BP Systolic 2023-07-07 10:00:00 Step hen F Brayan BP Diastolic 2023-07-07 10:00:00 Kp phen F Brayan Weight Measured 2023-07-07 10:00:00 186.60 pounds Crispin F Brayan Height Measured 2023-07-07 10:00:00 65.87 inches Crispin F Brayan Body Temperature 2023-07-07 10:00:00 Crispin F Brayan Heart Rate 2023-07-07 10:00:00 Cherri en F Brayan Respiratory Rate 2023-07-07 10:00:00 Crispin F Brayan BP Systolic 2021-10-01 09:28:00 172 mm[Hg] Step hen F Brayan BP Diastolic 2021-10-01 09:28:00 103 mm[Hg] Kp phen F Brayan Weight Measured 2021-10-01 09:28:00 186.60 pounds Crispin F Brayan Height Measured 2021-10-01 09:28:00 65.87 inches Crispin F Brayan Body Temperature 2021-10-01 09:28:00 98.30 degrees Crispin F Brayan Heart Rate 2021-10-01 09:28:00 86.00 /min Hcerri en F Brayan Respiratory Rate 2021-10-01 09:28:00 17.00 /min Crispin F Brayan BP Systolic 2021-06-10 08:37:00 174 mm[Hg] Hany Schmidt BP Diastolic 2021-06-10 08:37:00 104 mm[Hg] Kp Schmidt Weight Measured 2021-06-10 08:37:00 190.80 pounds Crispin Schmidt Height Measured 2021-06-10 08:37:00 65.87 inches Crispin Schmidt Body Temperature 2021-06-10 08:37:00 98.30 degrees Crispin Schmidt Heart Rate 2021-06-10 08:37:00 98.00 /min Cherri Schmidt Respiratory Rate 2021-06-10 08:37:00 17.00 /min Crispin Schmidt Encounters Start Date/Time End Date/Time Encounter Type Admission Type Attending [facility] Care Department Encounter ID Source 2024-10-17 00:00:00 2024-10-17 00:00:00 Outpatient Visit SFA [id number] Crispin Schmidt 2024-09-26 10:31:26 2024-09-26 10:31:26 Outpatient SFA SFA [id number] Crispin Schmidt 2024-09-26 00:00:00 2024-09-26 00:00:00 Outpatient Visit SFA [id number] Crispin Schmidt 2024-09-17 16:31:35 2024-09-17 16:31:35 Outpatient SFA SFA [id number] Crispin Schmidt 2024-09-17 00:00:00 2024-09-17 00:00:00 Outpatient Visit SFA [id number] Crispin Schmidt 2024-08-26 15:17:33 2024-08-26 15:17:33 Outpatient SFA SFA [id number] Crispin Schmidt 2023-11-22 16:49:56 2023-11-22 16:49:56 Outpatient SFA SFA [id number] Crispin Schmidt 2023-11-22 00:00:00 2023-11-22 00:00:00 Outpatient Visit SFA [id number] Crispin Schmidt 2023-09-09 00:00:00 2023-09-09 00:00:00 Outpatient GC_GCBZW_Ka damion_Linsey [facility] [id number] [facility] 2023-08-16 08:20:59 2023-08-16 08:20:59 Outpatient [facility] [id number] Crispin Schmidt 2023-07-07 11:11:15 2023-07-07 11:11:15 Outpatient [facility] [id number] Crispin Schmidt Results Test Description Test Time Test Comments Results Result Co mments Source Crispin SchmidtLIPID [id number] 00:00:00* Test Item Value Reference Range Interpretation Comme nts CHOLESTEROL (test code = 2210) 279 MG/DL TRIGLYCERIDES (test code = 2232) 235 MG/DL HDL CHOLESTEROL (test code = 2220) 41 MG/DL CALC LDL CHOL (test code = 2237) 194 MG/DL RISK RATIO LDL/HDL (test cod e = 2238) 4.73 RATIO Crispin SchmidtCOMPREHENSIVE METABOLIC [id number] 00:00:00* Test Item Value Reference Range Interpretation Comme nts GLUCOSE (test code = 2217) 97 MG/DL BUN (test code = 2208) 12 MG/DL CREATININE (test code = 2214) 0.67 MG/DL eGFR AMER. (test cod e = 23589) 114 ML/MIN/1.73 eGFR NON- AMER. (test code = 59149) 98 ML/MIN/1.73 CALC BUN/CREAT (test code = 2235) 18 RATIO SODIUM (test code = 2231) 140 MEQ/L POTASSIUM (test code = 2228) 3.6 MEQ/L CHLORIDE (test code = 2215) 99 MEQ/L CARBON DIOXIDE (test code = 2206) 29 MEQ/L CALCIUM (test code = 2209) 9.6 MG/DL PROTEIN, TOTAL (test code = 2229) 8.0 G/DL ALBUMIN (test code = 2201) 4.7 G/DL CALC GLOBULIN (test code = 2240) 3.3 G/DL CALC A/G RATIO (test code = 2234) 1.4 RATIO BILIRUBIN, TOTAL (test code = 2207) 0.5 MG/DL ALKALINE PHOSPHATASE (test code = 2204) 90 U/L AST (test code = 2218) 28 U/L ALT (test code = 2219) 50 U/L Crispin [id number] 00:00:00* Test Item Value Reference Range Interpretation Comme nts TSH, THIRD GENERATION (test code = 2821) 2.280 UIU/ML Crispin SchmidtVITAMIN D, 25 [id number] 00:00:00* Test Item Value Reference Range Interpretation Comme nts VITAMIN D, 25 OH (test code = 4958) 24 NG/ML Crispin SchmidtCBC W/AUTO [id number] 00:00:00* Test Item Value Reference Range Interpretation Comme nts WBC (test code = 1001) 6.7 K/UL RBC (test code = 1002) 4.58 M/UL HEMOGLOBIN (test code = 1003) 12.9 G/DL HEMATOCRIT (test code = 1004) 38.6 % MCV (test code = 1005) 84.3 fL MCH (test code = 1006) 28.2 PG MCHC (test code = 1007) 33.4 G/DL RDW (test code = 1038) 13.8 % NEUTROPHILS (test code = 1008) 45.4 % LYMPHOCYTES (test code = 1010) 44.1 % MONOCYTES (test code = 1011) 8.4 % EOSINOPHILS (test code = 1012) 1.3 % BASOPHILS (test code = 1013) 0.7 % IMMATURE GRANULOCYTES (test code = 1036) 0.1 % NUCLEATED RBCS (test code = 1065) 0.0 /100WBC'S PLATELET COUNT (test code = 1015) 380 K/UL ABSOLUTE NEUTROPHILS (test c ode = 1066) 3.03 K/UL ABSOLUTE LYMPHOCYTES (test c ode = 1067) 2.95 K/UL ABSOLUTE MONOCYTES (test cod e = 1068) 0.56 K/UL ABSOLUTE EOSINOPHILS (test c ode = 1040) 0.09 K/UL ABSOLUTE BASOPHILS (test cod e = 1069) 0.05 K/UL ABS IMMATURE GRANULOCYTES (t est code = 1020) 0.01 K/UL ABS NUCLEATED RBCS (test cod e = 73785) 0.00 K/UL Crispin SchmidtLIPID [id number] 00:00:00* Test Item Value Reference Range Interpretation Comme nts CHOLESTEROL (test code = 2210) 279 MG/DL TRIGLYCERIDES (test code = 2232) 235 MG/DL HDL CHOLESTEROL (test code = 2220) 41 MG/DL CALC LDL CHOL (test code = 2237) 194 MG/DL RISK RATIO LDL/HDL (test cod e = 2238) 4.73 RATIO Crispin SchmidtCOMPREHENSIVE METABOLIC [id number] 00:00:00* Test Item Value Reference Range Interpretation Comme nts GLUCOSE (test code = 2217) 97 MG/DL BUN (test code = 2208) 12 MG/DL CREATININE (test code = 2214) 0.67 MG/DL eGFR AMER. (test cod e = 38178) 114 ML/MIN/1.73 eGFR NON- AMER. (test code = 82733) 98 ML/MIN/1.73 CALC BUN/CREAT (test code = 2235) 18 RATIO SODIUM (test code = 2231) 140 MEQ/L POTASSIUM (test code = 2228) 3.6 MEQ/L CHLORIDE (test code = 2215) 99 MEQ/L CARBON DIOXIDE (test code = 2206) 29 MEQ/L CALCIUM (test code = 2209) 9.6 MG/DL PROTEIN, TOTAL (test code = 2229) 8.0 G/DL ALBUMIN (test code = 2201) 4.7 G/DL CALC GLOBULIN (test code = 2240) 3.3 G/DL CALC A/G RATIO (test code = 2234) 1.4 RATIO BILIRUBIN, TOTAL (test code = 2207) 0.5 MG/DL ALKALINE PHOSPHATASE (test code = 2204) 90 U/L AST (test code = 2218) 28 U/L ALT (test code = 2219) 50 U/L Crispin [id number] 00:00:00* Test Item Value Reference Range Interpretation Comme [facility] TSH, THIRD GENERATION (test code = 2821) 2.280 UIU/ML Crispin SchmidtVITAMIN D, 25 [id number] 00:00:00* Test Item Value Reference Range Interpretation Comme nts VITAMIN D, 25 OH (test code = 4958) 24 NG/ML Crispin SchmidtCBC W/AUTO [id number] 00:00:00* Test Item Value Reference Range Interpretation Comme nts WBC (test code = 1001) 6.7 K/UL RBC (test code = 1002) 4.58 M/UL HEMOGLOBIN (test code = 1003) 12.9 G/DL HEMATOCRIT (test code = 1004) 38.6 % MCV (test code = 1005) 84.3 fL MCH (test code = 1006) 28.2 PG MCHC (test code = 1007) 33.4 G/DL RDW (test code = 1038) 13.8 % NEUTROPHILS (test code = 1008) 45.4 % LYMPHOCYTES (test code = 1010) 44.1 % MONOCYTES (test code = 1011) 8.4 % EOSINOPHILS (test code = 1012) 1.3 % BASOPHILS (test code = 1013) 0.7 % IMMATURE GRANULOCYTES (test code = 1036) 0.1 % NUCLEATED RBCS (test code = 1065) 0.0 /100WBC'S PLATELET COUNT (test code = 1015) 380 K/UL ABSOLUTE NEUTROPHILS (test c ode = 1066) 3.03 K/UL ABSOLUTE LYMPHOCYTES (test c ode = 1067) 2.95 K/UL ABSOLUTE MONOCYTES (test cod e = 1068) 0.56 K/UL ABSOLUTE EOSINOPHILS (test c ode = 1040) 0.09 K/UL ABSOLUTE BASOPHILS (test cod e = 1069) 0.05 K/UL ABS IMMATURE GRANULOCYTES (t est code = 1020) 0.01 K/UL ABS NUCLEATED RBCS (test cod e = 16993) 0.00 K/UL Crispin SchmidtLIPID [id number] 00:00:00* Test Item Value Reference Range Interpretation Comme nts CHOLESTEROL (test code = 2210) 279 MG/DL TRIGLYCERIDES (test code = 2232) 235 MG/DL HDL CHOLESTEROL (test code = 2220) 41 MG/DL CALC LDL CHOL (test code = 2237) 194 MG/DL RISK RATIO LDL/HDL (test cod e = 2238) 4.73 RATIO Crispin SchmidtCOMPREHENSIVE METABOLIC [id number] 00:00:00* Test Item Value Reference Range Interpretation Comme nts GLUCOSE (test code = 2217) 97 MG/DL BUN (test code = 2208) 12 MG/DL CREATININE (test code = 2214) 0.67 MG/DL eGFR AMER. (test cod e = 47615) 114 ML/MIN/1.73 eGFR NON- AMER. (test code = 53319) 98 ML/MIN/1.73 CALC BUN/CREAT (test code = 2235) 18 RATIO SODIUM (test code = 2231) 140 MEQ/L POTASSIUM (test code = 2228) 3.6 MEQ/L CHLORIDE (test code = 2215) 99 MEQ/L CARBON DIOXIDE (test code = 2206) 29 MEQ/L CALCIUM (test code = 2209) 9.6 MG/DL PROTEIN, TOTAL (test code = 222) 8.0 G/DL ALBUMIN (test code = 2201) 4.7 G/DL CALC GLOBULIN (test code = 2240) 3.3 G/DL CALC A/G RATIO (test code = 2234) 1.4 RATIO BILIRUBIN, TOTAL (test code = 7) 0.5 MG/DL ALKALINE PHOSPHATASE (test code = 2204) 90 U/L AST (test code = 2218) 28 U/L ALT (test code = 2219) 50 U/L Crispin [id number] 00:00:00* Test Item Value Reference Range Interpretation Comme [facility] TSH, THIRD GENERATION (test code = 2821) 2.280 UIU/ML Crispin Martinez BrayanVITAMIN D, 25 [id number] 00:00:00* Test Item Value Reference Range Interpretation Comme [facility] VITAMIN D, 25 OH (test code = 4958) 24 NG/ML Crispin Martinez BrayanCBC W/AUTO [id number] 00:00:00* Test Item Value Reference Range Interpretation Comme nts WBC (test code = 1001) 6.7 K/UL RBC (test code = 1002) 4.58 M/UL HEMOGLOBIN (test code = 1003) 12.9 G/DL HEMATOCRIT (test code = 1004) 38.6 % MCV (test code = 1005) 84.3 fL MCH (test code = 1006) 28.2 PG MCHC (test code = 1007) 33.4 G/DL RDW (test code = 1038) 13.8 % NEUTROPHILS (test code = 1008) 45.4 % LYMPHOCYTES (test code = 1010) 44.1 % MONOCYTES (test code = 1011) 8.4 % EOSINOPHILS (test code = 1012) 1.3 % BASOPHILS (test code = 1013) 0.7 % IMMATURE GRANULOCYTES (test code = 1036) 0.1 % NUCLEATED RBCS (test code = 1065) 0.0 /100WBC'S PLATELET COUNT (test code = 1015) 380 K/UL ABSOLUTE NEUTROPHILS (test c ode = 1066) 3.03 K/UL ABSOLUTE LYMPHOCYTES (test c ode = 1067) 2.95 K/UL ABSOLUTE MONOCYTES (test cod e = 1068) 0.56 K/UL ABSOLUTE EOSINOPHILS (test c ode = 1040) 0.09 K/UL ABSOLUTE BASOPHILS (test cod e = 1069) 0.05 K/UL ABS IMMATURE GRANULOCYTES (t est code = 1020) 0.01 K/UL ABS NUCLEATED RBCS (test cod e = 89983) 0.00 K/UL Crispin Martinez [place] SpringsLIPID [id number] 00:00:00* Test Item Value Reference Range Interpretation Comme nts CHOLESTEROL (test code = 2210) 279 MG/DL TRIGLYCERIDES (test code = 2232) 235 MG/DL HDL CHOLESTEROL (test code = 2220) 41 MG/DL CALC LDL CHOL (test code = 2237) 194 MG/DL RISK RATIO LDL/HDL (test cod e = 2238) 4.73 RATIO Crispin SchmidtCOMPREHENSIVE METABOLIC [id number] 00:00:00* Test Item Value Reference Range Interpretation Comme nts GLUCOSE (test code = 2217) 97 MG/DL BUN (test code = 2208) 12 MG/DL CREATININE (test code = 2214) 0.67 MG/DL eGFR AMER. (test cod e = 20717) 114 ML/MIN/1.73 eGFR NON- AMER. (test code = 37894) 98 ML/MIN/1.73 CALC BUN/CREAT (test code = 2235) 18 RATIO SODIUM (test code = 2231) 140 MEQ/L POTASSIUM (test code = 2228) 3.6 MEQ/L CHLORIDE (test code = 2215) 99 MEQ/L CARBON DIOXIDE (test code = 2206) 29 MEQ/L CALCIUM (test code = 2209) 9.6 MG/DL PROTEIN, TOTAL (test code = 2229) 8.0 G/DL ALBUMIN (test code = 2201) 4.7 G/DL CALC GLOBULIN (test code = 2240) 3.3 G/DL CALC A/G RATIO (test code = 2234) 1.4 RATIO BILIRUBIN, TOTAL (test code = 2207) 0.5 MG/DL ALKALINE PHOSPHATASE (test code = 2204) 90 U/L AST (test code = 2218) 28 U/L ALT (test code = 2219) 50 U/L Crispin [id number] 00:00:00* Test Item Value Reference Range Interpretation Comme nts TSH, THIRD GENERATION (test code = 2821) 2.280 UIU/ML Crispin SchmidtVITAMIN D, 25 [id number] 00:00:00* Test Item Value Reference Range Interpretation Comme nts VITAMIN D, 25 OH (test code = 4958) 24 NG/ML Crispin Martinez [id number] (COVID-19) by RT-PCR (HIGH RISK)2020-12-15 00:00:00* Test Item Value Reference Range Interpretation Comme nts SARS-CoV-2 INTERPRETATION (test code = 07788) NEGATIVE SOURCE (test code = 90903) NASOPHARYNGEAL Crispin Martinez [id number] (COVID-19) by RT-PCR (HIGH RISK)2020-12-15 00:00:00* Test Item Value Reference Range Interpretation Comme nts SARS-CoV-2 INTERPRETATION (test code = 30857) NEGATIVE SOURCE (test code = 74735) NASOPHARYNGEAL Crispin F [id number]-[id number] (COVID-19) by RT-PCR (HIGH RISK)2020-12-15 00:00:00* Test Item Value Reference Range Interpretation Comme nts SARS-CoV-2 INTERPRETATION (test code = 49345) NEGATIVE SOURCE (test code = 95137) NASOPHARYNGEAL Crispin F DnzwctZGFD-[id number]-4 (COVID-19) by RT-PCR (HIGH RISK)2020-12-15 00:00:00* Test Item Value Reference Range Interpretation Comme nts SARS-CoV-2 INTERPRETATION (test code = 93418) NEGATIVE SOURCE (test code = 45372) NASOPHARYNGEAL Crispin F IkimjbSHVX-DmL-[id number] (COVID-19) by RT-PCR (HIGH RISK)2020-09-18 00:00:00* Test Item Value Reference Range Interpretation Comme nts SARS-CoV-2 INTERPRETATION (test code = 47790) Positive SOURCE (test code = 61136) Nasal_Swab_in _VTM__ UTM Crispin SchmidtSARS-CoV-2 (COVID-19) by RT-PCR (HIGH RISK)2020-09-18 00:00:00* Test Item Value Reference Range Interpretation Comme nts SARS-CoV-2 INTERPRETATION (test code = 57374) Positive SOURCE (test code = 63164) Nasal_Swab_in _VTM__ UTM Crispin Martinez ZovawhFYMC-[id number]-8 (COVID-19) by RT-PCR (HIGH RISK)2020-09-18 00:00:00* Test Item Value Reference Range Interpretation Comme nts SARS-CoV-2 INTERPRETATION (test code = 91521) Positive SOURCE (test code = 83260) Nasal_Swab_in _VTM__ UTM Crispin SchmidtSARS-CoV-2 (COVID-19) by RT-PCR (HIGH RISK)2020-09-18 00:00:00* Test Item Value Reference Range Interpretation Comme nts SARS-CoV-2 INTERPRETATION (test code = 22725) Positive SOURCE (test code = 70561) Nasal_Swab_in _VTM__ UTM Crispin Michelle Brayan Notes Date/Time Note Provider Source Crispin FDejuan [facility]2024-11-15 00:00:00 Crispin Ling [facility]2024-11-06 00:00:00 Crispin Dejuan [facility]2024-01-11 00:00:00 [facility]
[2025-03-17 19:16] LABS: Absolute Basophils 0.1 K/uL (0-0.5); Absolute Eosinophils 0.2 K/uL (0-0.5); Absolute Lymphocytes (CBC) 3.6 K/uL (0.7-4.9); Absolute Monocytes 0.8 K/uL (0.1-1.3); Absolute Neutrophil 4.4 K/uL (1.8-8.0); Basophils % 0.8 % (0-1.3); Eosinophils % 2.1 % (0-4.4); Hematocrit 34.5 % (36.0-45.0); Hemoglobin 11.9 g/dL (12.0-15.0); Lymphocytes % 39.9 % (15.3-44.8); MCH 29.5 pg (27.0-35.0); MCHC 34.6 g/dL (32.0-36.0); MCV 85.5 fL (80-100); MPV 7.9 fL (7.6-11.3); Monocytes % 8.8 % (3.3-12.3); Neutrophils % 48.4 % (41.7-73.7); Nucleated Red Blood Cells % 0.1 % (0-0); Platelets 310 thou/uL (152-406); RBC Red Blood Cell Count 4.04 M/uL (3.86-4.86); Red Cell Distribution Width 13.9 % (12.1-15.2)
[2025-03-17 19:38] LABS: ALT/SGPT 38 U/L (13-56); AST/SGOT 16 U/L (15-37); Albumin 3.2 g/dL (3.4-5.0); Albumin/Globulin Ratio 0.8 (1.1-1.8); Alkaline Phosphatase 81 U/L (45-117); Anion Gap 8.3 mEq/L (5.0-15.0); BUN Blood Urea Nitrogen 21 mg/dL (7-18); Bicarbonate 28 mEq/L (21-32); Bilirubin Total 0.2 mg/dL (0.2-1.0); Globulin 3.9 g/dL (2.3-3.5); Glomerular Filtration Rate 60 ml/min (=/>90); Glucose Level 102 mg/dL (74-106); Magnesium 1.9 mg/dL (1.6-2.4); NT PRO-BNP 53 pg/mL (<125); Potassium 3.3 mEq/L (3.5-5.1); Protein, Total 7.1 g/dL (6.4-8.2); Sodium Level 138 mEq/L (136-145); Troponin High Sensitivity 3.2 pg/mL (<58.9)
[2025-03-17 19:45] LABS: Bilirubin Direct < 0.2 mg/dL (0-0.2)
--- NOTE | 2025-03-17 20:01 | RAD REPORT ---
EXAMINATION: ONE VIEW CHEST XR CLINICAL INDICATION: Female, 59 years old.,CHEST PAIN TECHNIQUE: Frontal chest projection is submitted. Examination is limited by patient positioning and t echnique. COMPARISON: 01/27/2020 FINDINGS: The lungs are well inflated and clear. No pneumothorax or sizable effusion. The heart is normal in s ize. Mediastinal contours are unremarkable. IMPRESSION: No acute intrathoracic abnormalities.
[2025-03-17] MEDS ORDERED: POTASSIUM CL SA 10 MEQ TAB PO ONE (20:48)
--- NOTE | 2025-03-17 22:37 | EDPHYS ---
Physician Documentation [facility] Name: Sonia Sorenson Age: 59 yrs Sex: Female : 1965 Arrival Date: 03/17/2025 Time: 18:42 Bed 2 Private MD: ED Physician Irwin Kelly HPI: 03/17 18:52 This 59 yrs old Female presents to ER via Ambulatory with complaints of Chest kb Pain, Shortness Of Breath, Arm Pain, Nausea. 18:52 Patient is a 59-year-old female who presents for right sided chest pain that started kb approximately 2 hours prior to arrival. Reports pain radiates to the back and down right arm. Reports shortness of breath and nausea. Denies any aggravating or alleviating factors.. Historical: - Allergies: 18:51 Beta-Blockers (Beta-Adrenergic Blocking Agts); ll1 18:51 Iodine; ll1 - PMHx: 18:51 Hypertension; ll1 - PSHx: 18:51 section; Cholecystectomy; ll1 - Immunization history:: Adult Immunizations up to date. - Infectious Disease History:: Denies. - Social history:: Smoking status: Patient denies any tobacco usage or history of. ROS: 18:52 Constitutional: As per HPI kb Exam: 18:52 Constitutional: This is a well developed, well nourished patient who is awake, alert, kb and in no acute distress. Head/Face: Normocephalic, atraumatic. ENT: Moist Mucous membranes Cardiovascular: Regular rate Respiratory: Respirations even and unlabored. No increased work of breathing. Talking in full sentences Skin: Warm, dry with normal turgor. Normal color. MS/ Extremity: Pulses equal, no cyanosis. Neurovascular intact. Full, normal range of motion. Neuro: Awake and alert, GCS 15, oriented to person, place, time, and situation. 19:03 ECG was reviewed by the Attending Physician. kb Vital Signs: 18:50 BP 162 / 95; Pulse 91; Resp 18; Temp 98.2; Pulse Ox 95% on R/A; Weight 93.89 kg; Height ll1 5 ft. 6 in. ; Pain 8/10; 19:00 BP 133 / 78; Pulse 91; Resp 17; Pulse Ox 97% ; me1 20:00 BP 129 / 86; Pulse 85; Resp 17; Pulse Ox 100% ; me1 22:22 BP 140 / 83; Pulse 85; Resp 18; Pulse Ox 100% ; me1 18:50 Body Mass Index 33.41 (93.89 kg, 167.64 cm) ll1 18:50 Pain Scale: Adult ll1 MDM: 18:48 Medical Screening Exam initiated kb 22:35 Differential diagnosis: arrhythmia, acute mi, muscle strain. Data reviewed: vital kb signs, nurses notes. Consideration of Admission/Observation Escalation of care including admission/observation considered. admission considered but HEART score 2, serial troponin wnl. Historians other than the Patient: Spouse/Significant Other: spouse. Counseling: I had a detailed discussion with the patient and/or guardian regarding the historical points, exam findings, and any diagnostic results supporting the discharge/admit diagnosis, lab results, radiology results, the need for outpatient follow up, a family practitioner, to return to the emergency department if symptoms worsen or persist or if there are any questions or concerns that arise at home. 03/17 18:51 Order name: Basic Metabolic Panel; Complete Time: 19:47 kb 03/17 18:51 Order name: CBC with Diff; Complete Time: 19:19 kb 03/17 18:51 Order name: LFT's; Complete Time: 19:47 kb 03/17 18:51 Order name: Magnesium; Complete Time: 19:47 kb 03/17 18:51 Order name: NT PRO-BNP; Complete Time: 19:47 kb 03/17 18:51 Order name: Troponin HS; Complete Time: 19:47 kb 03/17 21:47 Order name: Troponin High Sensitivity; Complete Time: 22:35 kb 03/17 18:51 Order name: XRAY Chest (1 view); Complete Time: 20:05 kb 03/17 18:51 Order name: Cardiac monitoring; Complete Time: 19:10 kb 03/17 18:51 Order name: EKG - Nurse/Tech; Complete Time: 19:10 kb 03/17 18:51 Order name: IV Saline Lock; Complete Time: 19:10 kb 03/17 18:51 Order name: Labs collected and sent; Complete Time: 19:10 kb 03/17 18:51 Order name: O2 Per Protocol; Complete Time: 19:10 kb 03/17 18:51 Order name: O2 Sat Monitoring; Complete Time: 19:10 kb EC:03 Rate is 89 beats/min. Rhythm is regular. QRS [place] is Normal. [place] interval is normal at kb 180 msec. QRS interval is normal at 78 msec. QT interval is normal at 464 msec. Administered Medications: 20:50 Drug: Potassium Chloride PO 20 mEq PO once Route: PO; me1 21:18 Follow up: Response: No adverse reaction me1 Disposition Summary: 03/17/25 22:36 Discharge Ordered Notes: Location: Home kb Condition: Stable kb Diagnosis - Chest pain, unspecified kb Followup: kb - With: Emergency Department - When: As needed - Reason: Worsening of condition Followup: kb - With: Private Physician - When: 2 - 3 days - Reason: Recheck today's complaints, Continuance of care, Re-evaluation by your physician Discharge Instructions: - Discharge Summary Sheet kb - Nonspecific Chest Pain, Adult, [id number] kb Forms: - Medication Reconciliation Form kb - Antibiotic Education kb - Prescription Opioid Use kb - Patient Portal Instructions kb - Leadership Thank You Letter kb Signatures: Dispatcher [employer] EDRylee Avrey, SPANISH LANGUAGE LECTURER-C SPANISH LANGUAGE LECTURER-Ckb Andrew Dooley, RN RN ll1 Deidre Wilson, RN RN me1 Corrections: (The following items were deleted from the chart) 18:52 18:52 BASIC METABOLIC PANEL+C.LAB.BRZ ordered. EDMS EDMS 18:52 18:52 CBC+H.LAB.BRZ ordered. EDMS EDMS 18:52 18:52 HEPATIC FUNCTION+C.LAB.BRZ ordered. EDMS EDMS 18:52 18:52 MAGNESIUM+C.LAB.BRZ ordered. EDMS EDMS 18:52 18:52 PROBNP+C.LAB.BRZ ordered. EDMS EDMS 18:52 18:52 Troponin High Sensitivity+C.LAB.BRZ ordered. EDMS EDMS
--- NOTE | 2025-03-17 22:37 | ER ---
Nurse's Notes [facility] Name: Sonia Sorenson Age: 59 yrs Sex: Female : 1965 Arrival Date: 03/17/2025 Time: 18:42 Bed 2 Private MD: Diagnosis: Chest pain, unspecified Presentation: 03/17 18:50 Chief complaint: Patient states: SOB, CP, back, and R arm pain started after 5PM. ll1 States she took her grandson to the dentist and it was very stressful. Coronavirus screen: Client denies travel out of the [place] in the last 14 days. At this time, the client does not indicate any symptoms associated with coronavirus-19. Ebola Screen: Patient denies travel to an Ebola-affected area in the 21 days before illness onset. Initial Sepsis Screen: Does the patient meet any 2 criteria? No. Patient's initial sepsis screen is negative. Does the patient have a suspected source of infection? No. Patient's initial sepsis screen is negative. Risk Assessment: Do you want to hurt yourself or someone else? Patient reports no desire to harm self or others. Onset of symptoms was March 17, 2025. 18:50 Method Of Arrival: Ambulatory ll1 18:50 Acuity: CELESTINA 3 ll1 Historical: - Allergies: 18:51 Beta-Blockers (Beta-Adrenergic Blocking Agts); ll1 18:51 Iodine; ll1 - PMHx: 18:51 Hypertension; ll1 - PSHx: 18:51 section; Cholecystectomy; ll1 - Immunization history:: Adult Immunizations up to date. - Infectious Disease History:: Denies. - Social history:: Smoking status: Patient denies any tobacco usage or history of. Screenin:00 [facility] ED Fall Risk Assessment (Adult) History of falling in the last 3 months, me1 including since admission No falls in past 3 months (0 pts) Confusion or Disorientation No (0 pts) Intoxicated or Sedated No (0 pts) Impaired Gait No (0 pts) Mobility Assist Device Used No (0 pt) Altered Elimination No (0 pt) Score/Fall Risk Level 0 - 2 = Low Risk Educated pt \T\ family on fall prevention, incl call for assistance when getting out of bed, Provided non-skid footwear, Hourly rounding (assess needs \T\ fall precautionary measures) done. Abuse screen: Denies threats or abuse. Nutritional screening: No deficits noted. Tuberculosis screening: No symptoms or risk factors identified. Assessment: 19:00 General: Appears uncomfortable, well groomed, well developed, well nourished, Behavior me1 is calm, cooperative, appropriate for age, Reports SOB, CP, back, and R arm pain started after 5PM. States she took her grandson to the dentist and it was very stressful. Pain: Complains of pain in anterior aspect of right upper chest and right breast Pain radiates to right arm and mid upper back Pain currently is 8 out of 10 on a pain scale. Quality of pain is described as pressure, Pain began suddenly, 2 hours ago. Is continuous. Neuro: Level of Consciousness is awake, alert, obeys commands, Oriented to person, place, time, situation, Appropriate for age. Cardiovascular: Patient's skin is warm and dry. Cardiovascular: Reports chest pain, nausea, shortness of breath. Respiratory: Reports shortness of breath Airway is patent Respiratory effort is even, unlabored, Respiratory pattern is regular, symmetrical. GI: Reports nausea. : No signs and/or symptoms were reported regarding the genitourinary system. EENT: No signs and/or symptoms were reported regarding the EENT system. Derm: Skin is intact, is healthy with good turgor, Skin is pink, warm \T\ dry. Musculoskeletal: No signs and/or symptoms reported regarding the musculoskeletal system. Vital Signs: 18:50 BP 162 / 95; Pulse 91; Resp 18; Temp 98.2; Pulse Ox 95% on R/A; Weight 93.89 kg; Height ll1 5 ft. 6 in. ; Pain 8/10; 19:00 BP 133 / 78; Pulse 91; Resp 17; Pulse Ox 97% ; me1 20:00 BP 129 / 86; Pulse 85; Resp 17; Pulse Ox 100% ; me1 22:22 BP 140 / 83; Pulse 85; Resp 18; Pulse Ox 100% ; me1 18:50 Body Mass Index 33.41 (93.89 kg, 167.64 cm) ll1 18:50 Pain Scale: Adult ll1 ED Course: 18:43 Patient arrived in ED. im 18:48 Rylee Fang, [place] is PHCP. kb 18:48 Irwin Kelly MD is Attending Physician. kb 18:51 Triage completed. ll1 18:52 Arm band placed on Patient placed in an exam room, on a stretcher. ll1 18:53 Deidre Wilson, RN is Primary Nurse. me1 19:00 Patient has correct armband on for positive identification. Bed in low position. Call me1 light in reach. Side rails up X2. Provided Education on: POC. Verbalized understanding.. Client placed on continuous cardiac and pulse oximetry monitoring. NIBP monitoring applied. threat monitoring analyst on. Pulse ox on. NIBP on. 19:00 No provider procedures requiring assistance completed. Patient maintains SpO2 me1 saturation greater than 95% on room air. 19:09 Initial lab(s) drawn, by me, sent to lab. EKG done, by ED staff, reviewed by Rylee PUTNAM. Inserted saline lock: 22 gauge in right antecubital area, using aseptic technique. 19:10 Basic Metabolic Panel Sent. me1 19:10 CBC with Diff Sent. me1 19:10 LFT's Sent. me1 19:10 Magnesium Sent. me1 19:10 NT PRO-BNP Sent. me1 19:10 Troponin HS Sent. me1 19:42 XRAY Chest (1 view) In Process Unspecified. EDMS 23:10 intact, bleeding controlled, No redness/swelling at site. Pressure dressing applied. cp4 Administered Medications: 20:50 Drug: Potassium Chloride PO 20 mEq PO once Route: PO; me1 21:18 Follow up: Response: No adverse reaction me1 Medication: 19:00 VIS not applicable for this client. ma1 Outcome: 22:36 Discharge ordered by . kb 23:10 Discharged to home ambulatory, cp4 23:10 Condition: stable 23:10 Discharge instructions given to patient, family, Instructed on discharge instructions, follow up and referral plans. Demonstrated understanding of instructions, follow-up care, 23:11 Patient left the ED. cp4 Signatures: Dispatcher [employer] Rylee Holt, SOUND EDITORYaakov NOGUERA-Andrew Leung RN RN 1 Virginia Sheppard Michelle, RN RN ma1 Sally Muñiz cp4 Corrections: (The following items were deleted from the chart) 19:21 18:50 Chief complaint: Patient states: SOB, CP, back, and R arm pain started after 5PM. me1 States she took her grandson to the dentist and it was very stressful ll1
[2025-03-18 06:37] VITALS: TEMP 98.2
[2025-03-18 06:39] VITALS: O2SAT 100
[2025-03-18 06:40] VITALS: BP 140/83
--- NOTE | 2025-03-19 11:46 | EKG ---
Test Date: 2025-03-17 Test Time: 18:56:46 Dishcloth Folder: TM MEASUREMENT RESULTS: Intervals: Rate: 89 GA: 180 QRSD: 78 QT: 382 QTc: 464 [place]: P: 50 GA: 180 QRS: 45 T: 59 INTERPRETIVE STATEMENTS: Normal sinus rhythm Possible Left atrial enlargement Septal infarct, age undetermined Abnormal ECG Compared to ECG 11/06/2022 23:39:50 No significant changes Electronically Signed On 03-19-25 11:42:31 CDT by Zach Mcmahan
== END 2025-03-17 23:11 | disposition home or self-care (01) ==
LOC: ER 18:42
DX: R07.9 Chest pain, unspecified (principal); R06.02 Shortness of breath; R11.0 Nausea; I10 Essential (primary) hypertension
CPT/HCPCS: 36415; 71045; 80048; 80076; 83735; 83880; 84484; 85025; 93005; 99284